=== PATIENT | female | born 1950 | race Asian ===

== ENCOUNTER 2022-02-25 06:15 | Day surgery (SDC) | payer MEDICARE, OTHER ==
[~2022-02-25] VITALS: Ht 160 cm; Wt 58.0 kg
[~2022-02-25 06:15] MED LIST: ASCO500 PO; ASPI-1450 PO; ATOR40TA28 PO; BECL8.7A7 NASAL; CHOL400T56 PO; FISH1CAP63 PO; LISI-893 PO; LORA10TA7 PO; LOSA-382 PO; METF-1211 PO; MONT-35 PO; ROSU20TA73 PO; SODIUM CHLORIDE 0.9% 1,000 ML ONE
[2022-02-25] MEDS ORDERED: ALBUTEROL SULFATE 2.5 MG/0.5 ML NEB SOLUTION NEB ONE (06:16)
[2022-02-25] MEDS ORDERED: BENZOCAINE 20% 50 MCG/SPRAY 57 GM TP ONE (06:16)
[2022-02-25] MEDS ORDERED: LIDOCAINE 4% 50 ML SOLUTION TP ONE (06:16)
[2022-02-25] MEDS ORDERED: LIDOCAINE 2% 30 ML JELLY TP ONE (06:16)
[2022-02-25] MEDS ORDERED: SODIUM CHLORIDE 0.9% 1,000 ML IV ONE (06:30)
[2022-02-25 06:40] LABS: COVID AG,FIA SOURCE NASOPHARYNGEAL
[2022-02-25] MEDS ORDERED: FentaNYL CITRATE PF 100 MCG/2 ML VIAL ONE (07:16)
[2022-02-25] MEDS ORDERED: MIDAZOLAM HCL 5 MG/ML VIAL ONE (07:17)
[2022-02-25 07:41] LABS: GLUCOMETER DEV NAME(LOC) SDS.; GLUCOSE,POINT OF CARE 143 MG/DL (70-110)
[2022-02-25] MEDS ORDERED: MethylPREDNISolone SOD SUCC 125 MG/2 ML VIAL ONE (08:43)
[2022-02-25] MEDS ORDERED: MethylPREDNISolone SOD SUCC 125 MG/2 ML VIAL IVP ONE (08:45)
[2022-02-25] MEDS ORDERED: OXYGEN THERAPY IH SCH (20:00)
== END 2022-02-25 10:40 | disposition home or self-care (01) ==
LOC: SURGERY 06:15
PROVIDERS: ATTEND Internal Medicine Critical Care Medicine
DX: J38.4 Edema of larynx (principal); B37.0 Candidal stomatitis; I10 Essential (primary) hypertension; Z79.899 Other long term (current) drug therapy; Z98.890 Other specified postprocedural states
CPT/HCPCS: 31623; 31624; 71045; 82962; 87015; 87070; 87101; 87206; 87220; 87426; 88184; 88185; C9803; J2250; J2930; J3010; J7030; 88112; 88305; 88312; J7613; Z7610